=== PATIENT | female | born 2000 | race African-American/Black ===

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

== ENCOUNTER 2019-05-23 10:20 | Outpatient (CLI) | payer BC ==
[2019-05-23 13:37] VITALS: BP 130/63; PULSE 65; RESP 14; TEMP 96.8
--- NOTE | 2019-06-10 11:16 | P.MSEPDOC ---
Presenting Problems - Arrival Data Date of Arrival on Unit: 05/23/19 Time of Arrival on Unit: 10:19 Mode of Transport: Ambulatory - Complaint OB-Reason for Admission/Chief Complaint: Possible Onset of Labor Medical History - Information : 1 Para: 0 Term: 0 : 0 Abortions: Spontaneous or Elective: 0 Number of Living Children: 0 - Gestational Age Gestational Age by SAMANTHA (wks/days): 39 Weeks and 2 Days Review of Systems - Review of Systems Constitutional: No problems Breast: No problems ENT: No problems Cardiovascular: No problems Respiratory: No problems Gastrointestinal: No problems Genitourinary: No problems Musculoskeletal: No problems Neurological: No problems Skin: No problems Vital Signs - Temperature Temperature: 96.8 F Temperature Source: Tympanic - Pulse Right Brachial Pulse Rate: 65 Pulse Assessment Method: Automatic Cuff - Respirations Respiratory Rate: 14 Oxygen Delivery Method: Room Air - Blood Pressure Right Arm Blood Pressure: 130/63 Blood Pressure Mean: 85 Blood Pressure Source: Automatic Cuff Medical Screen Scoring (Pre) - Cervical Exam Dilation: 1-3 cm = 1 Effacement: More than 50% = 2 Membranes: Intact - Uterine Contractions Frequency: > 5 minutes apart = 1 Duration: N/A Intensity: N/A - Maternal Vital Signs Maternal Temperature: N/A Maternal Blood Pressure: N/A Signs of Preeclampsia: N/A Maternal Respirations: N/A - Maternal Trauma Maternal Trauma: N/A - Assessment - Baby A Baseline FHR: 125 Heart Rate - NICHD Category: Category I (Normal) = 0 NST: Reactive Position: N/A Station: N/A - Total Score - Baby A Total Score - Baby A: 4 - Total Score - Baby B Total Score - Baby B: 4 - Total Score - Baby C Total Score - Baby C: 4 - Level of Risk - Baby A Level of Risk - Baby A: Low (0-5) - Level of Risk - Baby B Level of Risk - Baby B: Low (0-5) - Level of Risk - Baby C Level of Risk - Baby C: Low (0-5) Physician Notification (Pre) - Physician Notified Physician Notified Date: 05/23/19 Physician Notified Time: 11:29 New Order Received: Yes - Notification Comment Comment: d/c home Disposition - Disposition OB Disposition: Discharge to home Discharge Date: 05/23/19 Discharge Time: 11:30 I agree with the RN Medical Screening Exam: Yes Risk & Benefit of care provided described in d/c instruction: Yes Diagnosis: FALSE LABOR AT OR AFTER 37 COMPLETED WEEKS OF GESTATION
== END 2019-05-23 11:30 | disposition home or self-care (01) ==
LOC: FBPOP 10:20
PROVIDERS: ATTEND Obstetrics & Gynecology
DX: O47.1 False labor at or after 37 completed weeks of gestation (principal); Z3A.39 39 weeks gestation of pregnancy
CPT/HCPCS: 59025; 84112; 99213

== ENCOUNTER 2019-05-26 04:56 | Inpatient (IN) | payer OTHER ==
[2019-05-26] MEDS ORDERED: METHYLERGONOVINE 0.2 MG/ML 1 ML AMP IM PRN (05:20)
[2019-05-26] MEDS ORDERED: OXYTOCIN 10 UNIT/ML 1 ML VIAL IM PRN (05:20)
[2019-05-26] MEDS ORDERED: TERBUTALINE 1 MG/ML VIAL SQ PRN (05:20)
[2019-05-26] MEDS ORDERED: BUTORPHANOL 1 MG/ML 1 ML VIAL IV PRN (05:20)
[2019-05-26] MEDS ORDERED: CARBOPROST TROMETHAMINE 250 MCG/ML 1 ML AMP IM PRN (05:20)
[2019-05-26] MEDS ORDERED: LIDOCAINE 0.5% (PF) 5 MG/ML (50 ML SDV) SQ PRN (05:20)
[2019-05-26] MEDS ORDERED: PENICILLIN G POTASSIUM 5,000,000 UNIT in DEXTROSE 5% IN WATER 100 ML IVPB ONE ×2 (05:30)
[2019-05-26] MEDS: LACTATED RINGERS 1,000 ML IV SCH ×3 (06:01→21:42)
[2019-05-26 06:11] LABS: Basophils # (A) 0.2 k/uL (0-0.2); Basophils % (A) 3 %; Eosinophils # (A) 0.2 k/uL (0-0.7); Eosinophils % (A) 3 %; HCT 35.5 % (34.0-46.0); HGB 11.7 gm/dL (11.4-16.0); Lymphocytes # (A) 0.8 k/uL (1.0-4.8); Lymphocytes % (A) 15 %; MCH 28.2 pg (25.0-35.0); MCHC 32.9 g/dL (31.0-37.0); MCV 85.7 fL (80.0-100.0); Mean Platelet Volume 8.3; Monocytes # (A) 0.3 k/uL (0-1.0); Monocytes % (A) 5 %; Neutrophils % (A) 73 %; Platelet Count 323 k/uL (150-450); RBC 4.14 m/uL (3.80-5.40); WBC 5.5 k/uL (4.0-11.0)
[2019-05-26] MEDS ORDERED: fentaNYL (PF) 50 MCG/ML 5 ML AMP ONE (08:15)
[2019-05-26] MEDS ORDERED: SODIUM CHLORIDE 0.9% 100 ML BAG ONE (08:15)
[2019-05-26] MEDS ORDERED: ROPIVACAINE 5MG/ML 20ML VIAL ONE (08:15)
[2019-05-26] MEDS: PENICILLIN G POTASSIUM 2,500,000 UNIT in DEXTROSE 5% IN WATER 100 ML IVPB SCH ×6 (10:00→21:42)
[2019-05-26] MEDS: OXYTOCIN 30 UNITS/500 ML NS 30 UNIT in SALINE 1 500ML.BAG IV SCH (11:00)
[2019-05-26] MEDS ORDERED: BENZOCAINE/MENTHOL SPRAY 1 GM/SPRAY AEROSOL TOPICAL PRN (15:50)
[2019-05-26] MEDS ORDERED: diphenhydrAMINE 25 MG CAP PO PRN (15:50)
[2019-05-26] MEDS ORDERED: ZOLPIDEM 5 MG TAB PO PRN (15:50)
[2019-05-26] MEDS ORDERED: diphenhydrAMINE 50 MG/ML 1 ML VIAL IVP PRN ×2 (15:50)
[2019-05-26] MEDS ORDERED: ACETAMINOPHEN TAB 325 MG TAB PO PRN (15:50)
[2019-05-26] MEDS ORDERED: HYDROCORTISONE 2.5% RECTAL CREAM 30 GM TUBE RECTAL PRN (15:50)
[2019-05-26] MEDS ORDERED: WITCH HAZEL 1 EACH MED..PAD TOPICAL PRN (15:50)
[2019-05-26] MEDS ORDERED: HYDROcodone/APAP 5-325MG 1 EACH TAB PO PRN (15:50)
[2019-05-26] MEDS ORDERED: SIMETHICONE 80 MG CHEWABLE PO PRN (15:50)
[2019-05-26] MEDS ORDERED: LANOLIN CREAM 5 GM TUBE TOPICAL PRN (15:50)
[2019-05-26] MEDS ORDERED: HYDROcodone/APAP 7.5-325MG 1 EACH TAB PO PRN (15:50)
[2019-05-26] MEDS ORDERED: diphenhydrAMINE 50 MG CAP PO PRN (15:50)
--- NOTE | 2019-05-26 15:56 | P.HPOB ---
History of Present Illness H&P Date: 05/26/19 Chief Complaint: 39-5/7 weeks, spontaneous rupture of membranes The patient is a 18-year-old 1 para 0 admitted at 39-5/7 weeks as established by a 25 week ultrasound. She is admitted with documented spontaneous rupture of membranes occurring approximately 10-12 hours prior to admission. Her has been essentially uncomplicated though she was late for care beginning at approximately 25+ weeks and then had rather spotty follow-up thereafter. Nevertheless, her was essentially uncomplicated as noted above. Group B strep status is negative. Obstetrical history: 1 para 0 with current statistics listed above. EDC of 05/28/2019 was established by 25 week ultrasound. Laboratory workup demonstrates a blood type of B+ with a negative antibody screen. Rubella status is immune. The remainder of the laboratory workup was within normal limits. One hour Glucola was normal and group B strep status is negative. Gynecologic history: Unremarkable with no history of any infections to include STDs. Review of Systems Review of systems is confined to history of present illness. Past Medical History Past Medical History: Asthma History of Any Multi-Drug Resistant Organisms: None Reported Past Surgical History: No Surgical Hx Reported Past Psychological History: No Psychological Hx Reported Smoking Status: Never smoker Past Alcohol Use History: None Reported Past Drug Use History: None Reported - Past Family History Mother Family Medical History: Asthma Medications and Allergies Home Medications Medication Instructions Recorded Confirmed Type No Known Home Medications 05/23/19 05/26/19 History Allergies Allergy/AdvReac Type Severity Reaction Status Date / Time No Known Allergies Allergy Verified 05/23/19 11:10 Exam Vital Signs Temp Pulse Resp BP Pulse Ox 05/26/19 05:35 96.8 F L 66 16 135/83 99 05/26/19 05:19 96.8 F L 66 16 135/83 99 Intake and Output 05/26/19 05/26/19 05/26/19 06:59 14:59 22:59 Other: # Voids 1 Weight 58.967 kg In general, this is a well-developed well-nourished female in some discomfort with early labor. Her heart has a regular rhythm and rate without murmur. Her lungs are clear to auscultation bilaterally in all riddle. Her abdomen is gravid, nondistended, has normal active bowel sounds, soft, nontender, and without any palpable masses aside from the uterine fundus. Digital cervical examination at my exam demonstrated cervix impression 5-6 cm dilated, 70% effaced, the vertex in presentation at -1-2 station. Results Result Diagrams: 05/26/19 05:50 Abnormal Lab Results - Last 24 Hours (Table) 05/26/19 Range/Units 05:50 Lymphocytes # 0.8 L (1.0-4.8) k/uL Assessment and Plan (1) Active labor at term Current Visit: Yes Status: Acute Code(s): GUI8073 - SNOMED Code(s): 94461088 Plan: Given the uncertainty of length of rupture of membranes, antibody prophylaxis was started. She was making relatively slow progress through the early active phase of labor, Pitocin augmentation was added. She otherwise was to have close maternal and surveillance and expectant management B practiced. An epidural catheter had been placed for analgesia.
--- NOTE | 2019-05-26 15:58 | P.PROBDLV ---
Vaginal Delivery Note - . Vaginal Delivery Note: The patient is a 18-year-old 1 para 0 admitted at 39-5/7 weeks by a 25 week ultrasound. She is admitted in early active labor with documented spontaneous rupture of membranes for clear fluid. Her had been essentially uncomplicated though she had late and spotty care. On labor and delivery, she had antibiotic prophylaxis started as her was uncertainty as to the length of time of rupture. After 1 dose of antibiotics had been infused, Pitocin augmentation was added. She had occasional episodes of deep variable decelerations which ultimately resolved. Pitocin augmentation was resumed and she ultimately did progress to complete. She then pushed over the course of approximately 1 hour and 45 minutes to a normal spontaneous vaginal delivery of a viable 5 lbs. 12 oz. baby boy with Apgars of 8 at 1 minute and 9 at 5 minutes delivered in the direct occiput anterior position. The placenta was delivered spontaneously, intact, and grossly normal although it was very small. There was a grossly normal fairly centrally inserted three-vessel cord. There were no lacerations of the perineum, vagina, or cervix. Estimated blood loss for the case was approximate 400 mL. There were no complications. All sponge, instrument, and needle counts were correct. Both mother and infant are resting comfortably in recovery.
[2019-05-26] MEDS ORDERED: OXYTOCIN 20 UNITS/1000 ML NS 1,000 ML IV SCH (16:00)
[2019-05-26] MEDS: SENNOSIDES-DOCUSATE SODIUM 1 EACH TAB PO SCH (20:58)
[2019-05-26] MEDS: IBUPROFEN 600 MG TAB PO PRN (20:58)
[2019-05-27] MEDS: PENICILLIN G POTASSIUM 2,500,000 UNIT in DEXTROSE 5% IN WATER 100 ML IVPB SCH ×4 (05:24→22:49)
[2019-05-27] MEDS: IBUPROFEN 600 MG TAB PO PRN ×2 (09:10→20:16)
[2019-05-27] MEDS: SENNOSIDES-DOCUSATE SODIUM 1 EACH TAB PO SCH ×2 (09:10→20:19)
[2019-05-27] MEDS: LACTATED RINGERS 1,000 ML IV SCH (20:17)
[2019-05-27] MEDS: OXYTOCIN 30 UNITS/500 ML NS 30 UNIT in SALINE 1 500ML.BAG IV SCH (20:18)
--- NOTE | 2019-05-28 08:42 | P.DS ---
Providers Date of admission: 05/26/19 05:10 Expected date of discharge: 05/28/19 Attending physician: Vega Carrera Primary care physician: Stated None - Discharge Diagnosis(es) (1) Active labor at term Current Visit: Yes Status: Acute (2) Normal spontaneous vaginal delivery Current Visit: Yes Status: Acute Hospital Course: The patient is a 18-year-old 1 para 0 admitted at 39-5/7 weeks by relatively poor dating parameters. She is admitted with spontaneous rupture of membranes and in early labor with all signs reassuring. Her was otherwise uncomplicated though she did have sporadic and late care. Group B strep status is negative. On labor and delivery, she had antibiotic prophylaxis started for unknown length of rupture. She ultimately had Pitocin augmentation started and an epidural catheter placed for analgesia. She then progressed to complete and pushed to a normal spontaneous vaginal delivery of a viable 5 lbs. 12 oz. baby boy with Apgars of 8 at 1 minute and 9 at 5 minutes. Her course was unremarkable with vital signs remaining stable and her temperature was afebrile throughout. She was deemed stable for discharge on day #2 and was discharged home to follow-up in the office in 6 weeks routinely. Discharge instructions included calling for any significantly increased bleeding or foul-smelling lochia, significantly increased fever or abdominal pain, perineal complaints, breast complaints, or anything else that concerned her. She is additionally instructed to have nothing in the vagina for at least 6 weeks time to include intercourse. She understood her instructions and agrees to follow up as noted above. Discharge medications included only continue vitamins as she has opted to breast-feed as well as metb-agt-vviarap analgesic pain medications. Maternal blood type is B+ and rubella status is immune. Procedures: #1. Antibiotic prophylaxis #2. Epidural analgesia #3. Pitocin augmentation #4. Normal spontaneous vaginal delivery Patient Condition at Discharge: Good Plan - Discharge Summary New Discharge Prescriptions: No Action No Known Home Medications Discharge Medication List No Known Home Medications 05/23/19 [History] Follow up Appointment(s)/Referral(s): Vega Carrera MD [STAFF PHYSICIAN] - 6 Weeks Discharge Disposition: HOME SELF-CARE
[2019-05-28] MEDS: SENNOSIDES-DOCUSATE SODIUM 1 EACH TAB PO SCH (08:50)
[2019-05-28 08:55] VITALS: RESP 16
[2019-05-28 18:44] VITALS: BP 117/64; PULSE 68; TEMP 98
== END 2019-05-28 18:30 | disposition home or self-care (01) | DRG 807 ==
LOC: FBPOP 04:56 → 4FBP 05:10
PROVIDERS: ADMIT Obstetrics & Gynecology Obstetrics; ATTEND Obstetrics & Gynecology
PROC: 10E0XZZ Delivery of Products of Conception, External Approach (ICD-10-PCS; principal; 2019-05-26)
PROC: 3E0R3NZ Introduction of Analgesics, Hypnotics, Sedatives into Spinal Canal, Percutaneous Approach (ICD-10-PCS; principal; 2019-05-26)
PROC: 00HU33Z Insertion of Infusion Device into Spinal Canal, Percutaneous Approach (ICD-10-PCS; principal; 2019-05-26)
DX: O76 Abnormality in fetal heart rate and rhythm complicating labor and delivery (principal); Z37.0 Single live birth; Z3A.39 39 weeks gestation of pregnancy; Z82.5 Family history of asthma and other chronic lower respiratory diseases
CPT/HCPCS: 85025; 86850; 86900; 86901

== ENCOUNTER 2019-10-17 10:21 | Emergency (ER) | payer OTHER ==
[2019-10-17] MEDS ORDERED: METOCLOPRAMIDE 5 MG/ML 2 ML VIAL IVP STA (10:59)
[2019-10-17] MEDS ORDERED: SODIUM CHLORIDE 0.9% 1,000 ML IV STA (10:59)
[2019-10-17] MEDS ORDERED: diphenhydrAMINE 50 MG/ML 1 ML VIAL IVP STA (11:00)
[2019-10-17] MEDS ORDERED: KETOROLAC 30 MG/ML 1 ML VIAL IVP STA (11:53)
--- NOTE | 2019-10-17 12:04 | ED ---
General Adult HPI - General Chief complaint: Headache Stated complaint: Headaches/no appetite Time Seen by Provider: 10/17/19 10:40 Source: patient, RN notes reviewed Mode of arrival: wheelchair Limitations: no limitations - History of Present Illness Initial comments: 18-year-old female with a past medical history of asthma presents to the emergency department for a chief complaint of migraine headaches. Patient has been getting headaches for 3 weeks on and off. Patient states they start on the right side of her head and causes nausea. Patient states today she had some nausea as well as blurry vision. Patient states headaches go away with naproxen. Patient denies history of migraines. She denies fevers or chills. She denies neck stiffness. Patient has no other complaints at this time including shortness of breath, chest pain, abdominal pain, nausea or vomiting, headache, or visual changes. - Related Data Home Medications Medication Instructions Recorded Confirmed No Known Home Medications 05/23/19 05/26/19 Allergies Allergy/AdvReac Type Severity Reaction Status Date / Time No Known Allergies Allergy Verified 10/17/19 10:27 Review of Systems ROS Statement: Those systems with pertinent positive or pertinent negative responses have been documented in the HPI. ROS Other: All systems not noted in ROS Statement are negative. Past Medical History Past Medical History: Asthma History of Any Multi-Drug Resistant Organisms: None Reported Past Surgical History: No Surgical Hx Reported Past Psychological History: No Psychological Hx Reported Smoking Status: Never smoker Past Alcohol Use History: None Reported Past Drug Use History: None Reported - Past Family History Mother Family Medical History: Asthma General Exam Limitations: no limitations General appearance: alert, in no apparent distress Head exam: Present: atraumatic, normocephalic, normal inspection Eye exam: Present: normal appearance, PERRL, EOMI. Absent: scleral icterus, conjunctival injection, periorbital swelling ENT exam: Present: normal exam, mucous membranes moist Neck exam: Present: normal inspection, full ROM. Absent: tenderness, meningismus, lymphadenopathy Respiratory exam: Present: normal lung sounds bilaterally. Absent: respiratory distress, wheezes, rales, rhonchi, stridor Cardiovascular Exam: Present: regular rate, normal rhythm, normal heart sounds. Absent: systolic murmur, diastolic murmur, rubs, gallop, clicks Neurological exam: Present: alert, oriented X3, normal gait, other (GCS 15) Expanded Patient oriented to: Present: person, place, time Speech: Present: fluid speech Cranial nerves: EOM's Intact: Normal, Tongue Deviation: Normal, Nystagmus: Normal, Facial Sensation: Normal Cerebellar function: Finger to Nose: Normal, Romberg: Normal Upper motor neuron: Pronator Drift: Normal Sensory exam: Upper Extremity Light Touch: Normal, Upper Extremity Pin Prick: Normal, Lower Extremity Light Touch: Normal, Lower Extremity Pin Prick: Normal Motor strength exam: RUE: 5, LUE: 5, RLE: 5, LLE: 5 Eye Response: (4) open spontaneously Motor Response: (6) obeys commands Verbal Response: (5) oriented Black Total: 15 Psychiatric exam: Present: normal affect, normal mood Course Vital Signs 10/17/19 10:23 Temperature 97.8 F Pulse Rate 53 L Respiratory 18 Rate Blood Pressure 134/72 O2 Sat by Pulse 98 Oximetry Medical Decision Making - Medical Decision Making Vitals are stable. Neurologic exam is unremarkable. No focal neurologic deficits. Patient is well-appearing, ambulatory. Given headaches for [address] brain was ordered to evaluate for any masses. This demonstrated no acute extremity hemorrhage, mass effect, or midline shift. No clinical concern for hemorrhage given symptoms on and off for 3 weeks without neurologic deficits. Patient was given migraine cocktail and had significant improvement in pain. In fact all however pain has resolved. Vision is back to normal. At this time I do recommend patient follows up with neurology as these are consistent with migraines given blurry vision, unilateral pain, photophobia and nausea. Referral given. Recommend he return for any worsening symptoms. Daughter and mother are both agreeable to this. - Lab Data Lab Results 10/17/19 Range/Units 11:30 Urine HCG, Qual Not Detected (Not Detectd) Disposition Clinical Impression: Headache Disposition: HOME SELF-CARE Condition: Good Instructions (If sedation given, give patient instructions): Acute Headache (ED) Additional Instructions: Please follow up with primary care and neurology in 1-2 days. If you have worsening symptoms return here to the emergency room. Is patient prescribed a controlled substance at d/c from ED?: No Referrals: Carlos Robles MD [Medical Doctor] - 1-2 days Elio Sam MD [REFERRING] - 1-2 days Time of Disposition: 12:42
--- NOTE | 2019-10-17 12:16 | CT ---
EXAMINATION TYPE: CT brain wo con DATE OF EXAM: 10/17/2019 COMPARISON: None HISTORY: MENDI[place]A, double vision CT DLP: 1011.4 mGycm. Automated Exposure Control for Dose Reduction was Utilized. TECHNIQUE: CT scan of the head is performed without contrast. FINDINGS: There is no acute intracranial hemorrhage, mass effect, or midline shift identified. The ventricles and sulci are within normal limits in size. Craniocervical junction maintained. Mild prominence to the Artifact limits the skull base secondary to metallic earrings. IMPRESSION: No acute intracranial hemorrhage, mass effect, or midline shift is seen. Given the patient's symptoms consider MRI.
[2019-10-17 13:43] VITALS: BP 110/67; PULSE 66; RESP 16; TEMP 98.2
== END 2019-10-17 13:15 | disposition home or self-care (01) ==
LOC: EC 10:21
DX: R51 Headache (principal); R63.0 Anorexia; R11.0 Nausea
CPT/HCPCS: 81025; 70450; 99284; 96374; 96375 ×2; 96361; J1200; J2765; J1885

== ENCOUNTER 2022-08-11 20:47 | Emergency (ER) | payer OTHER ==
[2022-08-11 21:07] VITALS: BP 120/70; PULSE 93; RESP 16; TEMP 99.1
--- NOTE | 2022-08-11 22:10 | ED ---
General Adult HPI - General Chief complaint: Upper Respiratory Infection Stated complaint: Lump under chin, Fatigue, Body aches Time Seen by Provider: 08/11/22 21:55 Source: patient, RN notes reviewed, old records reviewed Mode of arrival: ambulatory Limitations: no limitations - History of Present Illness Initial comments: Patient is a 21-year-old female who presents emergency Department complaining of 2 primary complaints. Has been having body aches, increased fatigue, small enlarged lymph node to the right side of the neck, as well as upper respiratory congestion for the last few days. Also noticed a possible nonrelated bump to the anterior aspect of the left arm. 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 Denies any fevers. Denies any known sick contacts but she is in health care setting. Denies any nausea, vomiting, diarrhea, chest pain. No history of IV drug use. History of asthma that seems mild. No other acute complaints at this time. Denies sore throat. Presents for further evaluation at this time. - Related Data Previous Rx's Medication Instructions Recorded Cephalexin [Keflex] 500 mg PO Q12HR 5 Days #10 cap 08/11/22 Allergies Allergy/AdvReac Type Severity Reaction Status Date / Time peanut [Peanut Butter] Allergy Swelling Verified 08/11/22 21:08 Review of Systems ROS Statement: Those systems with pertinent positive or pertinent negative responses have been documented in the HPI. Review of Systems: CONST: Denies fever EYES: Denies blurry vision ENT: Endorses nasal congestion C/V: Denies Chest pain RESP: Denies shortness of breath GI: Denies abdominal pain : Denies dysuria SKIN: Denies rash. MSK: Denies joint pain. NEURO: Denies headache ROS Other: All systems not noted in ROS Statement are negative. Past Medical History Past Medical History: Asthma History of Any Multi-Drug Resistant Organisms: None Reported Past Surgical History: No Surgical Hx Reported Past Psychological History: No Psychological Hx Reported Past Alcohol Use History: None Reported Past Drug Use History: None Reported - Past Family History Mother Family Medical History: Asthma General Exam - General Exam Comments Initial Comments: General: Appears in no acute distress. HEAD: Normal with no signs of head trauma. EYES: PERRLA, EOMI, conjunctiva normal, no discharge. ENT: Hearing grossly intact, normal oropharynx. RESPIRATORY: Clear breath sounds bilaterally. No wheezes, rales, or rhonchi. C/V: Regular rate and rhythm. S1 and S2 auscultated, peripheral pulses 2+ and intact throughout ABD: Abd is soft, nontender, nondistended EXT: Normal range of motion, no obvious deformity SKIN: Patient has what appears to be an enlarged submandibular lymph node on the right. Also a nontender small swelling location of the anterior aspect of left forearm which is likely related to the lymphatic system I cannot definitively say. NEURO: Alert and oriented 4. Limitations: no limitations Course Vital Signs 08/11/22 21:05 Temperature 99.1 F Pulse Rate 93 Respiratory 16 Rate Blood Pressure 120/70 O2 Sat by Pulse 99 Oximetry Medical Decision Making - Medical Decision Making Was pt. sent in by a medical professional or institution (, PA, SPECIAL NEEDS BUS DRIVER, urgent care, hospital, or intermediate...) When possible be specific @ -No Did you speak to anyone other than the patient for history (EMS, parent, family, police, friend...)? What history was obtained from this source @ -No Did you review nursing and triage notes (agree or disagree)? Why? @ -I reviewed and agree with nursing and triage notes Were old charts reviewed (outside hosp., previous admission, EMS record, old EKG, old radiological studies, urgent care reports/EKG's, intermediate records)? Report findings @ -No old charts were reviewed Differential Diagnosis (chest pain, altered mental status, abdominal pain women, abdominal pain men, vaginal bleeding, weakness, fever, dyspnea, syncope, headache, dizziness, GI bleed, back pain, seizure, CVA, palpatations, mental health, musculoskeletal)? @ -Viral syndrome, enlarged lymph node, Covid 19 infection, influenza infection, this list is not all-inclusive. EKG interpreted by me (3pts min.). @ -None done X-rays interpreted by me (1pt min.). @ -Chest x-ray shows no obvious cardio pulmonary process. CT interpreted by me (1pt min.). @ -None done U/S interpreted by me (1pt. min.). @ -None done What testing was considered but not performed or refused? (CT, X-rays, U/S, labs)? Why? @ -None What meds were considered but not given or refused? Why? @ -None Did you discuss the management of the patient with other professionals (professionals i.e. , PA, SPECIAL NEEDS BUS DRIVER, lab, RT, psych nurse, social services aide, aquaculture and fisheries professor, teacher, morals squad police officer, watch case polisher)? Give summary @ -No Was smoking cessation discussed for >3mins.? @ -No Was critical care preformed (if so, how long)? @ -No Were there social determinants of health that impacted care today? How? (Homelessness, low income, unemployed, alcoholism, drug addiction, transportation, low edu. Level, literacy, decrease access to med. care, fpc, rehab)? @ -No Was there de-escalation of care discussed even if they declined (Discuss DNR or withdrawal of care, Hospice)? DNR status @ -No What co-morbidities impacted this encounter? (DM, HTN, Smoking, COPD, CAD, Cancer, CVA, ARF, Chemo, Hep., AIDS, mental health diagnosis, sleep apnea, morbid obesity)? @ -None Was patient admitted / discharged? Hospital course, mention meds given and route, prescriptions, significant lab abnormalities, going to OR and other pertinent info. @ -Based on the patient's presentation and physical exam, I'm concerned for a viral syndrome for the patient's complaints. Patient enlarged lymph node on the neck. The anterior left forearm mass is also likely lymph node. Unimpressive exam otherwise. Did recommend viral swabs as well as a chest x-ray which she accepted. Vital signs are within acceptable limits. Viral swabs negative. Chest x-ray unremarkable. We did discuss the findings and her exam on her arm and I did empirically offer her antibiotics for colitis which she accepted. She'll be started on Keflex. Discussion likely is a viral syndrome otherwise. Strict return precautions discussed. She'll be given a work note for tomorrow. She was in agreement this plan. I answered all questions that she had. I will provide the patient with a prescription for Keflex. I instructed the patient to follow up with their PCP in the next 1-3 days. I explained that the patient should return to the emergency department if they experience any worsening symptoms. Strict return precautions were discussed with the patient. The patient expressed understanding of these instructions. I answered all questions that the patient had. The patient was discharged home in good condition with their prescriptions and follow up information. Undiagnosed new problem with uncertain prognosis? @ -No Drug Therapy requiring intensive monitoring for toxicity (Heparin, Nitro, Insulin, Cardizem)? @ -No Were any procedures done? @ -No Diagnosis/symptom? @ -Viral syndrome Acute, or Chronic, or Acute on Chronic? @ -Acute Uncomplicated (without systemic symptoms) or Complicated (systemic symptoms)? @ -Uncomplicated Side effects of treatment? @ -none Exacerbation, Progression, or Severe Exacerbation] @ -no Poses a threat to life or bodily function? @ -no Diagnosis/symptom? @ -URI Acute, or Chronic, or Acute on Chronic? @ -Acute Uncomplicated (without systemic symptoms) or Complicated (systemic symptoms)? @ -Uncomplicated Side effects of treatment? @ -none Exacerbation, Progression, or Severe Exacerbation] @ -no Poses a threat to life or bodily function? @ -no Diagnosis/symptom? @ -Cellulitis Acute, or Chronic, or Acute on Chronic? @ -Acute Uncomplicated (without systemic symptoms) or Complicated (systemic symptoms)? @ -Uncomplicated Side effects of treatment? @ -none Exacerbation, Progression, or Severe Exacerbation] @ -no Poses a threat to life or bodily function? @ -no - Lab Data Lab Results 08/11/22 Range/Units 22:28 Influenza Type A (PCR) Not Detected (Not Detectd) Influenza Type B (PCR) Not Detected (Not Detectd) RSV (PCR) Not Detected (Not Detectd) SARS-CoV-2 (PCR) Not Detected (Not Detectd) Disposition Clinical Impression: Viral syndrome, URI (upper respiratory infection), Cellulitis Disposition: HOME SELF-CARE Condition: Good Instructions (If sedation given, give patient instructions): Upper Respiratory Infection (ED) Prescriptions: Cephalexin [Keflex] 500 mg PO Q12HR 5 Days #10 cap Is patient prescribed a controlled substance at d/c from ED?: No Referrals: None,Stated [Primary Care Provider] - 1-2 days Time of Disposition: 23:40
--- NOTE | 2022-08-11 23:08 | XR ---
EXAMINATION TYPE: XR chest 2V DATE OF EXAM: 08/11/2022 COMPARISON: Chest x-ray March 14, 2018 HISTORY: Cough TECHNIQUE: Frontal and lateral views of the chest are obtained. FINDINGS: There is no suspicious focal air space opacity, pleural effusion, or pneumothorax seen. T he cardiac silhouette size is stable and within normal limits. The osseous structures are intact. IMPRESSION: No suspicious acute infiltrate. No significant change from prior.
== END 2022-08-11 23:58 | disposition home or self-care (01) ==
LOC: EC 20:47
DX: J06.9 Acute upper respiratory infection, unspecified (principal); B34.9 Viral infection, unspecified; L03.90 Cellulitis, unspecified; J45.909 Unspecified asthma, uncomplicated; Z91.010 Allergy to peanuts; Z20.822 Contact with and (suspected) exposure to COVID-19
CPT/HCPCS: 71046; 87636; 99283

== ENCOUNTER 2022-12-18 21:27 | Emergency (ER) | payer OTHER ==
[2022-12-18 21:33] VITALS: RESP 17
[2022-12-18 21:35] VITALS: TEMP 98.7
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
[2022-12-18] MEDS ORDERED: KETOROLAC 15 MG/ML 1 ML VIAL IM STA (22:10)
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
[2022-12-18 22:35] VITALS: BP 110/73; PULSE 58
== END 2022-12-18 22:58 | disposition home or self-care (01) ==
LOC: EC 21:27
DX: S70.00XA Contusion of unspecified hip, initial encounter (principal); J45.909 Unspecified asthma, uncomplicated; F17.290 Nicotine dependence, other tobacco product, uncomplicated; Z91.018 Allergy to other foods; V43.52XA Car driver injured in collision with other type car in traffic accident, initial encounter; Y92.410 Unspecified street and highway as the place of occurrence of the external cause
CPT/HCPCS: 73502; 99284; 96372; J1885

== ENCOUNTER 2023-08-25 02:43 | Emergency (ER) | payer OTHER ==
[2023-08-25] MEDS: LIDOCAINE 1% INJ 10MG/ML (20 ML MDV) SQ ONE (03:09)
[2023-08-25 03:12] VITALS: BP 115/74; PULSE 95; RESP 18; TEMP 98
--- NOTE | 2023-08-25 03:27 | ED ---
General Adult HPI - General Chief complaint: Extremity Injury, Upper Stated complaint: L ring finger infection Time Seen by Provider: 08/25/23 02:54 Source: patient, RN notes reviewed, old records reviewed Mode of arrival: ambulatory Limitations: no limitations - History of Present Illness Initial comments: 22-year-old female with pain and swelling to the left fourth digit. Patient states she had a small pimple that has enlarged and become more swollen. She placed a bandage over this and had a contact dermatitis secondary to the adhesive and the bandage. No fever. No pain in the hand. - Related Data Previous Rx's Medication Instructions Recorded Ibuprofen [Motrin] 600 mg PO Q8HR PRN #24 tab 12/18/22 Cephalexin [Keflex] 500 mg PO Q6HR 10 Days #40 cap 08/25/23 Sulfamethox-Tmp 800-160Mg [Bactrim 1 tab PO Q12HR #28 tab 08/25/23 DS 800-160 mg] Allergies Allergy/AdvReac Type Severity Reaction Status Date / Time peanut [Peanut Butter] Allergy Swelling Verified 12/18/22 21:58 Review of Systems ROS Statement: Those systems with pertinent positive or pertinent negative responses have been documented in the HPI. ROS Other: All systems not noted in ROS Statement are negative. Past Medical History Past Medical History: Asthma History of Any Multi-Drug Resistant Organisms: None Reported Past Surgical History: No Surgical Hx Reported Past Psychological History: No Psychological Hx Reported Smoking Status: Vaper Past Alcohol Use History: None Reported Past Drug Use History: None Reported - Past Family History Mother Family Medical History: Asthma General Exam Limitations: no limitations General appearance: alert, in no apparent distress Head exam: Present: atraumatic, normocephalic Eye exam: Present: normal appearance, PERRL Neck exam: Present: normal inspection Respiratory exam: Absent: respiratory distress Cardiovascular Exam: Present: regular rate, normal rhythm GI/Abdominal exam: Absent: distended Extremities exam: Present: other (Superficial abscess to the dorsal surface of the left fourth finger mid phalanx. No erythema or swelling into the hand.) Course Vital Signs 08/25/23 02:52 Temperature 98 F Pulse Rate 95 Respiratory 18 Rate Blood Pressure 115/74 O2 Sat by Pulse 97 Oximetry Procedures - Incision & Drainage Consent Obtained: verbal consent Indication: Abscess Site: hand Anesthetic Used: lidocaine 1% Amount (mLs): 3 I&D Cleaning Method: Alcohol Wipe Sterile Field Used?: No Scalpel Used: #11 I&D Drainage Obtained: Pus, Blood Culture Obtained?: No Patient Tolerated Procedure: well Medical Decision Making - Medical Decision Making Was pt. sent in by a medical professional or institution (ELISSA Henriquez, BOOK SHELVER, urgent care, hospital, or prison...) When possible be specific @ -No Did you speak to anyone other than the patient for history (EMS, parent, family, police, friend...)? What history was obtained from this source @ -No Did you review nursing and triage notes (agree or disagree)? Why? @ -I reviewed and agree with nursing and triage notes Were old charts reviewed (outside hosp., previous admission, EMS record, old EKG, old radiological studies, urgent care reports/EKG's, prison records)? Report findings @ -No old charts were reviewed Differential Diagnosis tenosynovitis, abscess, cellulitis EKG interpreted by me (3pts min.). @ -As above X-rays interpreted by me (1pt min.). @ -None done CT interpreted by me (1pt min.). @ -None done U/S interpreted by me (1pt. min.). @ -None done What testing was considered but not performed or refused? (CT, X-rays, U/S, labs)? Why? @ -None What meds were considered but not given or refused? Why? @ -None Did you discuss the management of the patient with other professionals (professionals i.e. ELISSA Henriquez, BOOK SHELVER, lab, RT, psych nurse, social service director, manager shop, teacher, loss prevention officer, case advocate)? Give summary @ -No Was smoking cessation discussed for >3mins.? @ -No Was critical care preformed (if so, how long)? @ -No Were there social determinants of health that impacted care today? How? (Homelessness, low income, unemployed, alcoholism, drug addiction, transportation, low edu. Level, literacy, decrease access to med. care, fdc, rehab)? @ -No Was there de-escalation of care discussed even if they declined (Discuss DNR or withdrawal of care, Hospice)? DNR status @ -No What co-morbidities impacted this encounter? (DM, HTN, Smoking, COPD, CAD, Cancer, CVA, ARF, Chemo, Hep., AIDS, mental health diagnosis, sleep apnea, morbid obesity)? @ -None Was patient admitted / discharged? Hospital course, mention meds given and route, prescriptions, significant lab abnormalities, going to OR and other pertinent info. @ -[22-year-old female with abscess to the left fourth digit dorsal surface. This is approximately 2 cm abscess with a central fluctuance. The roof of this abscess was very thin and transparent. I have a low suspicion for a deep space infection within the hand given history this is likely a folliculitis and superficial abscess. I did perform a digital block with lidocaine and was able to make a very superficial incision and express approximately 4 to 6 cc of andi pus from this abscess. Patient has improved range of motion of the finger. She is given antibiotics and instructed to monitor her hand and finger closely. She is given strict return parameters. Undiagnosed new problem with uncertain prognosis? @ -No Drug Therapy requiring intensive monitoring for toxicity (Heparin, Nitro, Insulin, Cardizem)? @ -No Were any procedures done? @ -No Diagnosis/symptom? @ -[Finger abscess Acute, or Chronic, or Acute on Chronic? @Acute Uncomplicated (without systemic symptoms) or Complicated (systemic symptoms)? @ -Default Side effects of treatment? @ -No Exacerbation, Progression, or Severe Exacerbation? @ -No Poses a threat to life or bodily function? How? (Chest pain, [place], [place], pneumonia, PE, COPD, DKA, ARF, appy, cholecystitis, CVA, Diverticulitis, Homicidal, Suicidal, threat to staff... and all critical care pts) @ -No Disposition Clinical Impression: Abscess of finger Disposition: HOME SELF-CARE Condition: Good Instructions (If sedation given, give patient instructions): Abscess (ED) Prescriptions: Sulfamethox-Tmp 800-160Mg [Bactrim DS 800-160 mg] 1 tab PO Q12HR #28 tab Cephalexin [Keflex] 500 mg PO Q6HR 10 Days #40 cap Is patient prescribed a controlled substance at d/c from ED?: No Referrals: None,Stated [Primary Care Provider] - 1-2 days Time of Disposition: 03:26
== END 2023-08-25 04:06 | disposition home or self-care (01) ==
LOC: EC 02:43
DX: L02.512 Cutaneous abscess of left hand (principal); F17.290 Nicotine dependence, other tobacco product, uncomplicated; Z91.010 Allergy to peanuts
CPT/HCPCS: 26010; 99283; J2001